=== PATIENT | female | born 1985 | race African-American/Black ===

== ENCOUNTER 2017-06-01 20:10 | Emergency (ER) | payer OTHER ==
[~2017-06-01] VITALS: Ht 167.6 cm; Wt 70.3 kg
[~2017-06-01 20:10] MED LIST: ALLERGY10 M1 PO; APAP/CODEINE ELI5 M1 OR; APAP500 PO; BACTRIM DS TAB1 EACH PO; CIPRO500 MG PO; CLINDAMYCIN PO; FLAGYL500 MG PO; IBUPROFEN 600600 M1 PO; KEFLEX500 MG PO; LANOLIN56 GM; MACROBID 100 M100 M2 PO; NOHOMEMEDICATIONS; NORCO 7.5-3251 EACH; ONDANSETRON HCL4 M2 PO; PRENATAL COMPL1 EACH PO; PRENATAL TABLE1 EAC3 PO; TRINATE TABLET1 TAB PO; VITAMINC500 PO; ZPAK PO
[2017-06-01 21:17] LABS: URINE BILIRUBIN NEGATIVE (Negative); URINE BLOOD TRACE (Negative); URINE COLOR YELLOW; URINE GLUCOSE-RANDOM* NEGATIVE (Negative); URINE KETONES TRACE (Negative); URINE NITRITE NEGATIVE (Negative); URINE PROTEIN (DIPSTICK) 1+ (Negative); URINE SPECIFIC GRAVITY >= 1.030 (1.003-1.035); URINE UROBILINOGEN 0.2 E.U./dl (0.2-1.0)
[2017-06-01 21:33] LABS: SQUAMOUS 4-10 Moderate /LPF (0-3)
[2017-06-01 21:38] LABS: AMORPHOUS URATES Moderate /LPF (None Seen); CASTS None Seen /LPF (None Seen)
[2017-06-01 21:39] LABS: BACTERIA 1-9 Few /HPF (None Seen); URINE RBC 0-2 Rare /HPF (0-2); URINE WBC 0-5 Rare /HPF (0-5)
[2017-06-01 21:58] LABS: HEMATOCRIT 38.1 % (37.0-47.0); HEMOGLOBIN 12.7 gm/dL (12.0-15.0); MCH 27.6 pg (26.0-34.0); MCHC 33.3 g/dL (28.0-37.0); MCV 82.8 fL (80.0-100.0); PLATELET COUNT 202 thou/uL (150-400); RDW 18.2 % (10.5-14.5); WBC 5.1 thou/uL (4.0-11.0)
[2017-06-01 22:07] LABS: CALCIUM 8.5 mg/dL (8.5-10.1); CREATININE 0.8 mg/dL (0.6-1.0); POTASSIUM 3.3 mmol/L (3.5-5.1)
[2017-06-01 22:10] LABS: MANUAL DIFF YES
[2017-06-01 22:57] LABS: ABSOLUTE NEUTROPHILS 4.1 thou/uL (1.4-8.2); ANISOCYTOSIS 1+; LARGE PLATELETS RARE; TOTAL CELL COUNT 100
[2017-06-02 00:19] VITALS: BP 132/96
== END 2017-06-02 00:20 | disposition home or self-care (01) ==
LOC: ER 20:10
PROVIDERS: Physician Assistant
DX: R10.2 Pelvic and perineal pain (principal); R30.0 Dysuria; R50.9 Fever, unspecified; Z91.040 Latex allergy status

== ENCOUNTER 2017-10-24 13:02 | Emergency (ER) | payer OTHER ==
[~2017-10-24] VITALS: Ht 167.6 cm; Wt 77.1 kg
--- NOTE | ~2017-10-24 | EKG ---
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
[2017-10-24] MEDS ORDERED: NORFLEX100 MG PO (14:28)
[2017-10-24] MEDS ORDERED: ULTRAM 50MG TAB50 MG PO (14:28)
[2017-10-24] MEDS ORDERED: NAPROSYN500 MG PO (14:28)
[2017-10-24] MEDS ORDERED: FLEXERIL PO (14:47)
[2017-10-24] MEDS ORDERED: IBUPROFEN 600600 M1 PO (14:47)
== END 2017-10-24 14:52 | disposition home or self-care (01) ==
LOC: ER 13:02
DX: S16.1XXA Strain of muscle, fascia and tendon at neck level, initial encounter (principal); R07.89 Other chest pain; M62.838 Other muscle spasm; Z91.040 Latex allergy status; Z87.891 Personal history of nicotine dependence; X58.XXXA Exposure to other specified factors, initial encounter; Y93.89 Activity, other specified; Y92.89 Other specified places as the place of occurrence of the external cause; Y99.8 Other external cause status

== ENCOUNTER 2018-12-25 09:44 | Emergency (ER) | payer OTHER ==
[~2018-12-25] VITALS: Ht 167.6 cm; Wt 81.7 kg
[~2018-12-25 09:44] MED LIST changes: +FLEXERIL PO; +NAPROSYN500 MG PO; +NORFLEX100 MG PO; +ULTRAM 50MG TAB50 MG PO
[2018-12-25] MEDS ORDERED: CELEXA20 MG PO (09:56)
[2018-12-25] MEDS ORDERED: IBUPROFEN 800800 M1 PO (10:58)
[2018-12-25 11:06] VITALS: BP 116/79
== END 2018-12-25 11:02 | disposition home or self-care (01) ==
LOC: ER 09:44
DX: S90.32XA Contusion of left foot, initial encounter (principal); Z87.891 Personal history of nicotine dependence; Z91.040 Latex allergy status; W22.8XXA Striking against or struck by other objects, initial encounter; Y92.009 Unspecified place in unspecified non-institutional (private) residence as the place of occurrence of the external cause; Y93.89 Activity, other specified; Y99.8 Other external cause status